=== PATIENT | female | born 1990 | race Hispanic/Latino ===

== ENCOUNTER 2018-11-24 14:02 | Emergency (ER) | payer MEDICAID, OTHER ==
--- NOTE | 2018-11-24 14:18 | Emergency Department Report ---
Stated Complaint: LEG PAIN/FT PAIN/NUMBNESS - HPI History of Present Illness: LEG PAIN WENT TO WORK P BEING OFF DUE TO INJURY SHE IS HAVING TOO MUCH PAIN TO WORK VSS NAD RAPID MSE ONLY MSE screening note: Focused history and physical exam performed. Due to findings the following was ordered: ED Disposition for MSE Condition: Stable
[2018-11-24 14:32] VITALS: BP 121/91
[2018-11-24] MEDS ORDERED: DECADRON IM STA (15:43)
[2018-11-24] MEDS ORDERED: TORADOL IM ONE (15:43)
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
--- NOTE | 2018-11-24 16:54 | Vascular Lab Report ---
FINAL REPORT EXAM: VL VENOUS DUPLEX LE LT HISTORY: lower extremity pain, swelling TECHNIQUE: Thibodeaux scale, color and pulsed Doppler ultrasound with color flow and spectral analysis torie luation of the left lower extremity was performed to assess for deep vein thrombosis. PRIORS: None currently available. FINDINGS: Left Extremity: There is normal grayscale appearance and compressibility. Normal phasic pulsed Doppler and normal color Doppler flow are visualized. The interrogated vessels s how normal augmentation. IMPRESSION: No evidence for DVT.
--- NOTE | 2018-11-24 17:27 | XRay Report ---
FINAL REPORT EXAM: XR FEMUR 2+V LT HISTORY: trauma to left lower extremity thigh/pain TECHNIQUE: AP and lateral radiographs of the left femur. PRIORS: None. FINDINGS: No fracture. No dislocation. Normal mineralization. No soft tissue abnormality. An IUD projects in the pelvis. IMPRESSION: Normal left femur.
== END 2018-11-24 18:57 | disposition home or self-care (01) ==
LOC: ED 14:02
DX: M79.652 Pain in left thigh (principal)
CPT/HCPCS: 73552; 93971; 96372; 99284; J1100; J1885